=== PATIENT | male | born 1985 | race Caucasian/White ===

== ENCOUNTER → 2019-04-04 | Outpatient (CLI) | payer OTHER, SELFPAY ==
--- NOTE | 2019-04-04 13:33 | PFTRPT ---
Height: 72.00 Inches Weight: 230.00 Lbs BSA: 2.26 Diagnosis: R06.00 DATE OF PROCEDURE: 04/04/2019 ORDERED BY: Dr. Street Spirometry: Pre and post bronchodilator study of excellent technical quality. Some mild difficulty with effort is noted. Forced vital capacity normal. FEV1 in proportion. Obstructive index is, therefore, normal. Flow Volume Loop: Expiratory limb of the flow volume loop is normal. No significant bronchodilator response identified. Difficulty with the inspiratory limb is noted. Lung Volumes: Total lung capacity normal. Residual volume is in proportion. Diffusing Capacity: Diffusing capacity is borderline. Hemoglobin: Hemoglobin acceptable at 13.4. Airway Mechanics: Airway resistance and conductance are normal. IMPRESSION: Probably normal study. MTDD
== END ==
LOC: M CARPUL 12:48
PROVIDERS: ATTEND Internal Medicine Pulmonary Disease
DX: R06.00 Dyspnea, unspecified (principal)

== ENCOUNTER → 2020-03-01 | Outpatient (REF) | payer BC | LOC: M SFHCLUC 16:02 | PROVIDERS: ATTEND Physician Assistant | DX: R21 Rash and other nonspecific skin eruption (principal) ==

== ENCOUNTER → 2021-08-04 | Outpatient (CLI) | payer OTHER ==
[~2021-08-04] MED LIST: E-Z-GAS II EFFERVESCENT PACKET (SODIUM BICARB./CITRIC ACID/SIMETHICONE) As Ordered ONE; E-Z-HD 98% w/w 340GM SUSP BTL As Ordered ONE; E-Z-PAQUE 96% w/w SUSP 176GM BTL As Ordered ONE
== END ==
LOC: M RAD 08:21
PROVIDERS: ATTEND Physician Assistant
DX: R10.13 Epigastric pain (principal)

== ENCOUNTER → 2022-05-19 | Outpatient (REF) | LOC: M PLAIMG 13:32 | PROVIDERS: ATTEND Internal Medicine | DX: Z11.52 Encounter for screening for COVID-19 (principal) ==

== ENCOUNTER → 2022-07-08 | Outpatient (REF) | payer OTHER | LOC: M SMT 17:23 | PROVIDERS: ATTEND Urology | DX: Z30.2 Encounter for sterilization (principal) ==